=== PATIENT | male | born 1980 | race Caucasian/White ===

== ENCOUNTER 2019-04-13 03:10 | Emergency (ER) | payer BC, SELFPAY ==
--- NOTE | ~2019-04-13 | XR_ITS ---
EXAMINATION: XR abdomen/kub 1V INDICATION: Left-sided flank pain, kidney stone TECHNIQUE: Supine views of the abdomen were obtained on 2 radiographs. COMPARISON: 04/17/[address] from today FINDINGS: There is a 6 mm calcification in the left pelvis at the expected location of the left urete rovesicular junction corresponding to the stone identified on CT examination. Bowel contents project over the kidneys limiting sensitivity for right kidney stones seen on the CT examination. A moderate volume of colonic stool is present. There are no dilated loops of bowel. A round metallic density pro jecting over the right lower quadrant has the appearance of a soft tissue BB on CT examination IMPRESSION: 1. 6 mm left ureterovesicular junction stone. Reviewed, dictated and finalized at location A. N AND RECTAL SURGEON
--- NOTE | ~2019-04-13 | CT_ITS ---
EXAMINATION: CT abdomen pelvis wo con DATE: 04/13/2019 03:48 INDICATION: Left flank pain TECHNIQUE: Computed tomography (CT) of the abdomen and pelvis was performed without intravenous contr ast. The dose-length product (DLP) was 278.47 mGy-cm. Automated exposure control and iterative recons truction technique were employed. COMPARISON: 05/19/2012 FINDINGS: There are patchy opacities of the lower lobes. The heart size is normal. Cysts of the liver measure up to 8 mm. The spleen, pancreas, gallbladder, and adrenal glands are normal. There is an 8 mm stone at the left ureterovesicular junction which causes moderate left hydroureteronephrosis. Ther e are punctate nonobstructing calcifications of the right kidney which measure up to 3 mm. There is n o free intraperitoneal gas or evidence of bowel obstruction. No pathologically enlarged abdominal or pelvic lymph nodes are identified. The appendix is normal. A round metallic density in the anterior s ubcutaneous tissues of the right abdominal wall has the appearance of a BB. There is moderate lumbar spondylosis at L5-S1. IMPRESSION: 1. 8 mm stone at the left ureterovesicular junction causing moderate left hydronephrosis. 2. Nonobstructing right nephrolithiasis. Reviewed, dictated and finalized at location A. USSION TUNER IMPRESSION: 1. 8 mm stone at the left ureterovesicular junction causing moderate left hydro nephrosis. 2. Nonobstructing right nephrolithiasis.
--- NOTE | 2019-04-13 03:17 | ED.ABDPAIN ---
HPI - Abdominal Pain General Chief Complaint: Abdominal Pain Stated Complaint: abd pain Time Seen by Provider: 04/13/19 03:14 Source: RN notes reviewed History of Present Illness HPI narrative: Patient presents to emergency department from home for left flank pain. Patient states symptoms began 2 hours ago. Pain described as sharp and stabbing located left flank and does not radiate. Associate with nausea. Denies any fevers or chills, chest pain shortness of breath vomiting diarrhea or any other symptoms. Denies taking previous pain medication at home. States he does have a history of kidney stones her current pain feels like previous kidney stones Related Data Home Medications Medication Instructions Recorded Confirmed Suboxone 04/03/19 Allergies Allergy/AdvReac Type Severity Reaction Status Date / Time haloperidol Allergy Unknown Swelling Verified 04/03/19 05:25 of Lip/Tongue/Throat Review of Systems Review of Systems: Narrative: Gen.: Denies fevers or chills ENT: Denies congestion Respiratory: Denies shortness of breath or cough CV: Denies chest pain or palpitations GI: See HPI denies burning, urgency, frequency or hematuria Musculoskeletal: Denies back pain or muscle pain Neuro: Denies numbness, tingling, weakness or focal weakness Skin: Denies rash Except as documented, all other systems reviewed and negative [facility] Past Medical History Medical History Anxiety Kidney stones Right shoulder injury Family History Family History (Updated 10/14/15 @ 23:19 by DOCTOR UNKNOWN) Father Family history of diabetes mellitus in first degree relative Mother Family history of lymphoma Social History Social History Smoking status: Current some day smoker Tobacco type: e-cigarettes Alcohol intake: never Substance use type: prescription drug and other Other substance usage details: currently on suboxone due to previous drug dependency Gender identity (if verbalized by the patient): Male Exam Narrative: Exam Narrative: APPEARANCE: No acute distress, nontoxic, resting in bed EYES: EOMI HEENT: Normocephalic, atraumatic, OMM RESPIRATORY: No respiratory distress Clear to auscultation bilaterally with no rhonchi wheezing or rales. CARDIOVASCULAR: Regular rate and rhythm without murmurs rubs or gallops. ABDOMINAL: Soft, nontender, nondistended, no rebound or guarding low flank tenderness MUSCULOSKELETAl: Moves all extremities. No clubbing, cyanosis or edema. NEURO: Awake and alert. Following commands, speech normal, no focal deficits SKIN:: Warm, dry. No rashes lesions or abrasions PSYCHIATRIC: Normal affect/mood, Course Course Emergency Course: Patient states he is feeling better this time Discussed Dr. Will for urology presentation work-up he agrees plan for discharge. Recommends no antibiotics at this time follow-up as outpatient Discussed with patient results of workup and diagnosis. Discussed need for follow-up with primary care, proper use of medication, and reasons to return to the emergency department. Patient understands and agrees to current treatment plan Vital Signs Vital signs: Vital Signs Temperature 97.8 F 04/13/19 03:18 Pulse Rate 78 04/13/19 03:18 Respiratory Rate 18 04/13/19 03:18 Blood Pressure 128/80 04/13/19 03:18 Pulse Oximetry 100 04/13/19 03:18 Temperature 97.8 F 04/13/19 03:18 Pulse Rate 103 H 04/13/19 04:31 Respiratory Rate 18 04/13/19 04:31 Blood Pressure 119/70 04/13/19 04:31 Pulse Oximetry 100 04/13/19 04:31 MDM - Abdominal Pain Lab Data Result diagrams: 04/13/19 03:24 04/13/19 03:24 Labs: Lab Results 04/13/19 04/13/19 04/13/19 Range/Units 03:24 03:24 03:24 WBC 10.2 H (4.5-10.0) K/mm3 RBC 4.86 (4.6-6.20) M/mm3 Hgb 15.3 (14.0-18.0) g/dL Hct 45
[2019-04-13 03:18] VITALS: BP 128/80; PULSE 78; RESP 18; TEMP 36.6; O2SAT 100
[2019-04-13] MEDS: ONDANSETRON INJ 4 MG/2 ML VIAL IV PUSH (03:22)
[2019-04-13] MEDS: LACTATED RINGERS 1,000 ML 999 ML IV CONT (03:22)
[2019-04-13] MEDS: KETOROLAC 30 MG/ML VIAL (*BKC) IV PUSH (03:22)
[2019-04-13 03:30] LABS: Basophils Absolute Auto 0.1 K/mm3 (0.0-0.1); Basophils Percent Auto 0.7 % (0.2-1.2); Eosinophils Absolute Auto 0.6 K/mm3 (0-0.3); Eosinophils Percent Auto 6.3 % (0-4.4); Hematocrit 45.7 % (42.0-52.0); Hemoglobin 15.3 g/dL (14.0-18.0); Immature Granulocyte Absolute 0.02 K/mm3 (0.00-0.031); Immature Granulocyte Percent A 0.2 % (0-0.5); Lymphocytes Percent Auto 14.7 % (18.3-44.2); Mean Corpuscular HGB Conc 33.5 g/dl (32-36); Mean Corpuscular Hemoglobin 31.5 pg (26-34); Mean Platelet Volume 10.4 fl (7.4-10.4); Monocytes Absolute Auto 0.8 K/mm3 (0.1-0.6); Neutrophils Absolute Auto 7.1 K/mm3 (1.3-6.7); Neutrophils Percent Auto 70.1 % (45.5-73.1); Platelet Count Result 261 k/mm3 (150-375); Red Blood Count 4.86 M/mm3 (4.6-6.20); Red Cell Distribution Width 13.5 % (11.5-14.5); White Blood Count 10.2 K/mm3 (4.5-10.0)
[2019-04-13 03:52] LABS: Lipase 71 U/L (23-300)
[2019-04-13 03:55] LABS: Alanine Aminotransferase 23 U/L (4-50); Albumin Level 4.2 g/dL (3.5-5.1); Alkaline Phosphatase 47 U/L (38-126); Aspartate Amino Transferase 24 U/L (17-59); Bilirubin,Total 0.3 mg/dL (0.2-1.3); Blood Urea Nitrogen 10 mg/dL (9-20); Calcium 9.3 mg/dL (8.4-10.2); Carbon Dioxide 30 mmol/L (22-30); Estimated Glomerular Filt Rate 56; Glucose 103 mg/dL (75-110)
[2019-04-13 04:03] LABS: Chloride 100 mmol/L (98-107); Potassium 3.7 mmol/L (3.4-5.0); Sodium 140 mmol/L (137-145)
[2019-04-13 04:31] VITALS: BP 119/70; PULSE 103; RESP 18; O2SAT 100
[2019-04-13 04:55] LABS: Add Urine Microscopic? YES; Appearance Urine Clear (Clear); Bilirubin Urine Negative (Negative); Blood Urine Negative (Negative); Color Urine Yellow (Yellow); Glucose Urine UA Negative (Negative); Ketones Urine Negative (Negative); Leukocyte Esterase Ur Trace LEU/UL (Negative); Mucus Urine Rare /lpf; Nitrate Urine Negative (Negative); Protein Urine Negative (Negative); Specific Grav Ur 1.019 (1.001-1.035)
[2019-04-13] MEDS: TAMSULOSIN HCL 0.4 MG CAPSULE PO (05:25)
[2019-04-13 05:34] VITALS: BP 145/77; PULSE 70; RESP 18; O2SAT 98
--- NOTE | 2019-04-26 02:29 | PC.NURSE ---
LATE ENTRY This note is being entered to document information to the patient's record. The following information was omitted on [04/13/19], by [miguel angel]. IV LR fluids finished at 0422 and Ofirmev finished infusing at 0545.
--- NOTE | 2019-04-27 13:46 | PC.NURSE ---
LATE ENTRY This note is being entered to document information to the patient's record. The following information was omitted on [04/13/2019], by [Farhan Rivera RN]. Tylenol infusion stopped at 0550
== END 2019-04-13 05:34 | disposition home or self-care (01) ==
PROVIDERS: Emergency Provider Emergency Medicine
DX: N13.2 Hydronephrosis with renal and ureteral calculous obstruction (principal); Z87.442 Personal history of urinary calculi; F17.290 Nicotine dependence, other tobacco product, uncomplicated
CPT/HCPCS: 36415; 74018; 74176; 80053; 81001; 83690; 85025; 96361; 96365; 96375; 99284; A9270; J0131; J1885; J2405; J7120

== ENCOUNTER 2022-12-15 18:07 | Emergency (ER) | payer BC, SELFPAY ==
--- NOTE | ~2022-12-15 | CT_ITS ---
EXAMINATION: CTA chest PE abdomen pel DATE: 12/15/2022 22:41 INDICATION: Chest and abdominal pain TECHNIQUE: Computed tomography angiography (CTA) of the chest was performed with 100 mL Omnipaque-350 intravenous contrast timed to evaluate the pulmonary arteries. Subsequent postcontrast images of the abdomen and pelvis are obtained. Coronal maximum intensity projection 3D-reconstructions were create d by the technologist. The dose-length product (DLP) was 1020.36 mGy-cm. Automated exposure control a nd iterative reconstruction technique were employed. COMPARISON: 04/13/2019 FINDINGS: CTA CHEST: The pulmonary arteries are well-opacified. No pulmonary embolism is identified. Sensitivit y is limited by respiratory motion. The lungs are free of acute opacities. No pleural effusion or pne umothorax. No pathologically enlarged thoracic lymph nodes are identified. The heart size is normal. There is chronic anterior wedging of the T5 and T6 vertebral bodies. ABDOMEN/PELVIS CT: Cysts of the liver measure up to 10 mm in the left hepatic lobe. The spleen, pancr eas, gallbladder, and adrenal glands are normal. Cysts of the kidneys measure up to 11 mm on the righ t. There is a 4 mm stone at the right ureterovesicular junction. There is a 3 mm stone in the distal right ureter. There is no significant hydronephrosis or hydroureter. No pathologically enlarged abdom inal or pelvic lymph nodes are identified. No free intraperitoneal gas or evidence of bowel obstructi on. A moderate volume of colonic stool is present. There is moderate lumbar spondylosis at L5-S1. IMPRESSION: 1. No pulmonary embolus identified, sensitivity limited by respiratory motion. 2. 4 mm stone at the right ureterovesicular junction and 3 mm stone of the distal right ureter withou t significant hydronephrosis. Reviewed, dictated and finalized at location F. IMPRESSION: 1. No pulmonary embolus identified, sensitivity limited by respiratory motion. 2. 4 mm stone at the right ureterovesicular junction and 3 mm stone of the dist al right ureter without significant hydronephrosis.
--- NOTE | ~2022-12-15 | XR_ITS ---
EXAMINATION: XR chest 1V portable Exam Date/Time: 12/15/2022 18:48 CDT HISTORY: SOB Comparison: 04/03/2019. RESULT: Lines, tubes, and devices: None. Lungs and pleura: Clear. Cardiomediastinal silhouette: Stable. Other: No acute osseous or upper abdominal finding. IMPRESSION: No acute cardiopulmonary process. Reviewed, dictated and finalized at location K.
--- NOTE | 2022-12-15 18:10 | ECG_ITS ---
Measurements Intervals Hillister Rate: 121 P: 38 VA: 149 QRS: 62 QRSD: 87 T: 36 QT: 292 QTc: 415 Interpretive Statements SINUS TACHYCARDIA ABNORMAL ECG COMPARED TO ECG 04/03/2019 05:20:07 NO SIGNIFICANT CHANGES Electronically Signed On 12-15-2022 20:39:00 CDT by Jareth Anand D.O.
[2022-12-15 18:12] VITALS: BP 126/92; PULSE 115; RESP 22; TEMP 36.4; O2SAT 99
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
[2022-12-15 18:49] VITALS: O2SAT 97
[2022-12-15 19:02] VITALS: BP 141/104; PULSE 115; PULSE 126; RESP 21; O2SAT 98
[2022-12-15 19:16] LABS: Alanine Aminotransferase 21 U/L (6-50); Albumin Level 4.9 g/dL (3.5-5.1); Alkaline Phosphatase 65 U/L (38-126); Anion Gap 10 mmol/L (8-16); Aspartate Amino Transferase 25 U/L (17-59); Bilirubin,Total 1.1 mg/dL (0.2-1.3); Blood Urea Nitrogen 10 mg/dL (9-20); Calcium 9.7 mg/dL (8.4-10.2); Carbon Dioxide 31 mmol/L (22-30); Chloride 101 mmol/L (98-107); Estimated CRCL calculation 78 ml/min; Estimated Glomerular Filt Rate > 60; Glucose 93 mg/dL (65-110); Potassium 3.5 mmol/L (3.4-5.0); Sodium 142 mmol/L (137-145)
--- NOTE | 2022-12-15 19:24 | PC.NURSE ---
This RN assumed care of patient. This RN took patient report from HIPOLITO Larsen.
[2022-12-15 19:28] LABS: Troponin I < 0.012 ng/mL (0.000-0.034)
[2022-12-15] MEDS: ACETAMINOPHEN 500 MG TABLET 1000 MG PO (19:28)
[2022-12-15 19:30] VITALS: BP 141/112; PULSE 115; RESP 22; O2SAT 96
[2022-12-15 20:05] LABS: Appearance Urine Cloudy (Clear); Bacteria Urine None Seen /hpf; Bilirubin Urine 1+ (Negative); Blood Urine 1+ (Negative); Color Urine Dark Yellow (Yellow); Glucose Urine UA Negative (Negative); Ketones Urine Trace mg/dL (Negative); Leukocyte Esterase Ur Trace LEU/UL (Negative); Nitrate Urine Negative (Negative); Protein Urine 1+ mg/dL (Negative); Specific Grav Ur 1.035 (1.001-1.035); Squamous Epithelial Cell Urine None seen /hpf (Few); WBC Urine 21-50 /hpf; pH Urine 5.5 (5.0-9.0)
[2022-12-15 20:06] LABS: Need Manual Microscopic Reviewed
[2022-12-15 20:16] LABS: Add Urine Microscopic? YES
[2022-12-15 20:40] LABS: Basophils Absolute Auto 0.1 K/mm3 (0.0-0.1); Basophils Percent Auto 1.4 % (0.2-1.2); Eosinophils Absolute Auto 0.5 K/mm3 (0-0.3); Eosinophils Percent Auto 8.5 % (0-4.4); Hematocrit 43.3 % (42.0-52.0); Immature Granulocyte Absolute 0.01 K/mm3 (0.00-0.031); Immature Granulocyte Percent A 0.2 % (0-0.5); Lymphocytes Percent Auto 33.6 % (18.3-44.2); Mean Corpuscular Hemoglobin 34.8 pg (26-34); Mean Corpuscular Volume 94.1 fl (80-100); Monocytes Absolute Auto 0.6 K/mm3 (0.1-0.6); Monocytes Percent Auto 9.6 % (2.6-8.5); Neutrophils Absolute Auto 2.9 K/mm3 (1.3-6.7); Neutrophils Percent Auto 46.7 % (45.5-73.1); Platelet Count Result 276 k/mm3 (150-375); Red Cell Distribution Width 13.2 % (11.5-14.5); White Blood Count 6.3 K/mm3 (4.5-10.0)
[2022-12-15 20:50] LABS: Ethanol < 10 mg/dL (<10)
[2022-12-15] MEDS: SODIUM CHLORIDE 0.9% IV 1,000 ML 999 ML IV CONT (20:54)
[2022-12-15 21:01] LABS: Barbiturate Screen Urine Negative (Negative); Benzodiazepines Screen Urine Negative (Negative)
[2022-12-15 21:05] LABS: Cannabinoid Screen Urine Negative (Negative); Cocaine Screen Urine Negative (Negative); Methadone Screen Urine Negative (Negative); Opiate Screen Urine Negative (Negative); Phencyclidine Screen Urine Negative (Negative)
[2022-12-15 21:09] LABS: D Dimer 0.56 ug/mL (<0.48)
[2022-12-15 22:15] LABS: Amphetamine Screen Urine Positive (Negative)
[2022-12-16] MEDS: TAMSULOSIN HCL 0.4 MG CAPSULE PO (01:23)
[2022-12-16] MEDS: levoFLOXacin 750 MG TABLET PO (01:23)
[2022-12-16 01:27] VITALS: BP 135/95; PULSE 95; RESP 13; O2SAT 99
== END 2022-12-16 01:29 | disposition home or self-care (01) ==
PROVIDERS: Emergency Medicine; Emergency Provider Physician Assistant; PCP Family Medicine
DX: R07.89 Other chest pain (principal); N20.0 Calculus of kidney; R82.998 Other abnormal findings in urine; F41.9 Anxiety disorder, unspecified; F17.290 Nicotine dependence, other tobacco product, uncomplicated; Z87.442 Personal history of urinary calculi; R00.0 Tachycardia, unspecified
CPT/HCPCS: 36415; 71045; 71275; 74177; 80053; 80307; 81001; 84484; 85025; 85380; 87086; 93005; 96360; 96361; 99284; A9270; J7030; Q9967

== ENCOUNTER 2025-01-17 10:26 | Emergency (ER) | payer BC, SELFPAY ==
--- OUTSIDE RECORDS SUMMARY | 2017-07-25 07:00 | XMS_ITS | Continuity of Care Document ---
Author Organization [facility] Address [address] [place] [address] Rd [address] [place] [address] Phone Care Team Providers Care Vehicle Assembler Name Role Phone Rachna Flores PT Unavailable Unavailable Procedures Procedure Date FCE Each 15min Advance Directives Directive Yes / No Effective Date File Name No Information Encounters Encounter Description Practice Location Reason(s) For Visit Diagnoses Date Provider Providers Copied on Encounter [facility], [address] [place], [place] [address], [place], [place], [id number], tel:[phone] [facility] No Information 0-201 [address] Mark Briscoe. . Referring Provider: Alvin Prasad, [address] [place], [address]. tel:[phone] Family History Family Member Type Diagnosis Age At Onset No Information Payers Payer name Insurance type Covered green party ID Authoriza tielda(s) Destiny Morales [facility] [id number] [employer] EPO SP [id number] Social History Type Description Quantity Date Captured Comments Sex Male Smoking Status No Information Chief Complaint And Reason For Visit No Information Reason For Referral Reason For Referral No Information History Of Present Illness Encounter Date Complaint History Of Prese nt Illness No Information Functional Status Date Functional Assessmen t No Information Instructions Date Instruction Additional Infor mation No Information Assessments Type Assessment Date No Information Patient Care Teams Name Effective Dates (start - stop) Status Members No Information
[2025-01-17 11:27] VITALS: BP 104/78; PULSE 74; RESP 20; TEMP 36.7; O2SAT 99
[2025-01-17] MEDS: TETANUS,DIPHTHERIA,AC PERTUSSIS ADULT (0.5 ML) BOOSTRIX IM (12:05)
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
== END 2025-01-17 12:22 | disposition home or self-care (01) ==
PROVIDERS: Emergency Provider Emergency Medicine; PCP Family Medicine
DX: S01.01XA Laceration without foreign body of scalp, initial encounter (principal); W22.09XA Striking against other stationary object, initial encounter; F17.290 Nicotine dependence, other tobacco product, uncomplicated; Z23 Encounter for immunization
CPT/HCPCS: 12002; 90471; 90715; 99282